=== PATIENT | male | born 1965 | race African-American/Black ===

== ENCOUNTER 2016-11-29 20:46 | Observation (INO) | payer SELFPAY ==
[~2016-11-29] VITALS: Ht 167.6 cm; Wt 100.0 kg
[~2016-11-29 20:46] MED LIST: Aspirin Chew PO; CARV6.25 PO; PLAV75TA29 PO; PRAV40TA PO
[2016-11-29 20:49] VITALS: BP 124/65; PULSE 82; RESP 16; TEMP 98.7; O2SAT 92
[2016-11-29 20:53] VITALS: O2SAT 94
--- NOTE | 2016-11-29 21:01 | PD ---
HPI Chief Complaint: Chest Pain Time Seen by Provider: 20:50 Travel History International Travel<30 days: No Contact w/Intl Traveler<30days: No Traveled to known affect area: No History of Present Illness HPI The patient is a 51 year old male who presents to the [facility] emergency department with a history of according to ambulance services being witnessed by bystanders to be walking on the sidewalk and then slowly collapsing to the ground. The patient is found in the prone position with a decreased level of consciousness. Upon awakening further without any medication administration the patient reported that he had chest pain. The patient reports that he had a stent placed 2 months ago. The patient is unsure what medications he is on normally. He denies taking any aspirin today. He was given one sublingual nitroglycerin by ambulance services prior to arrival. The patient reports that he was at a bar prior to this occurring and was given a drink. He is unsure what was in the drink. He denies using any drugs. He reports that he does smoke a half a pack of cigarettes per day. He drinks alcohol occasionally. He reports that he only had 1 drink this evening. The patient had no visible trauma, no injury to his tongue or evidence of tongue biting. No loss of bowel or bladder control. The patient reports that the chest pain is currently present. It is present on the left side of the chest. He reports that he feels like tiny needles are sticking him in the left side of the chest. He denies having any shortness of breath, diaphoresis, nausea or radiation of pain associated with this The patient denies any recent fevers, cough, congestion, neck pain, vomiting, diarrhea, urinary symptoms, or neurologic symptoms. [facility] Past Medical History Narrative Medical The patient's past medical history is significant for coronary artery disease status post stent placement 2 months ago. Autoimmune Disease: No Cancer: No Cardiovascular Problems: No Endocrine: No Genitourinary: No Immune Disorder: No Musculoskeletal: No Neurologic: No Psychiatric: No Reproductive: No Respiratory: No Past Surgical History Narrative Surgical The patient's past surgical history significant for cardiac catheterization with stent placement, left knee surgery. Social History Alcohol Use: Yes (occasionally) Tobacco Use: Yes (half a pack a day) Substance Use: No Allergies-Medications (Allergen,Severity, Reaction): Coded Allergies: Penicillin (Verified Allergy, Intermediate, rash, 09/28/16) Reported Meds & Prescriptions Reported Meds & Active Scripts Active Pravachol (Pravastatin) 40 Mg Tab 40 Mg PO HS 30 Days Plavix (Clopidogrel Bisulfate) 75 Mg Tab 75 Mg PO DAILY 30 Days Coreg (Carvedilol) 6.25 Mg Tab 6.25 Mg PO BID 30 Days [Aspirin Chew] 81 MG Chew 81 Mg PO DAILY 30 Days Review of Systems Except as stated in HPI: all other systems reviewed are Neg General / Constitutional: No: Fever Eyes: No: Visual changes HENT: No: Headaches Cardiovascular: Positive: Chest Pain or Discomfort, No: Dyspnea on exertion Respiratory: No: Shortness of Breath Gastrointestinal: No: Abdominal Pain Genitourinary: No: Dysuria Musculoskeletal: No: Pain Skin: No Rash Neurologic: Positive: Weakness (generalized weak), Tremor (tremulousness on arrival), Change in Mentation, No: Focal Abnormalities, Headache, Slurred Speech, Sensory Disturbance Psychiatric: No: Depression Endocrine: No: Polydipsia Hematologic/Lymphatic: No: Easy Bruising Physical Exam Narrative General: The patient is a well-developed well-nourished male in no acute distress. The patient is drowsy on examination slow to answer questions. Head and Neck exam: Head is normocephalic atraumatic. Eyes: EOMI, pupils are equal round and reactive to light. Nose: Midline septum with pink mucous membranes Mouth: Dentition unremarkable. Moist mucus membranes. Posterior oropharynx is not erythematous. No tonsillar hypertrophy. Uvula midline. Airway patent. No evidence of trauma to his tongue or in his mouth. Neck: No palpable lymphadenopathy. No nuchal rigidity. No thyromegaly. Cardiovascular: Regular rate and rhythm without murmurs, gallops, or rubs. Lungs: Clear to auscultation bilaterally. No wheezes, rhonchi, or rales. Abdomen: Soft, without tenderness to palpation in all 4 quadrants of the abdomen. No guarding, rebound, or rigidity. Normal bowel sounds are audible. Extremities: No clubbing, cyanosis, or edema. 2+ pulses in all 4 extremities. The patient has decreased range of motion of the left knee, however he reports this is chronic related to his prior history of knee surgery. Back: No spinous process tenderness to palpation. No costovertebral angle tenderness to palpation. Neurologic Exam: Cranial nerves 2-12 were intact on exam. Strength is 5/5 in all 4 extremities. No sensory deficits noted. The patient is oriented to person, place, however not time or situation. He cannot recall the events of what occurred just prior to arrival. Skin Exam: No rash noted. Intact skin that is warm and dry. Data Data Last Documented VS Vital Signs Date Time Temp Pulse Resp B/P Pulse Ox O2 Delivery O2 Flow Rate FiO2 11/29/16 22:57 79 16 145/85 95 Nasal Cannula 2 11/29/16 20:49 98.7 Orders Electrocardiogram (11/29/16 20:50) Complete Blood Count With Diff (11/29/16 20:50) Comprehensive Metabolic Panel (11/29/16 20:50) Creatine Kinase (Cpk) (11/29/16 20:50) Ckmb (Isoenzyme) Profile (11/29/16 20:50) Troponin I (11/29/16 20:50) B-Type Natriuretic Peptide (11/29/16 20:50) Prothrombin Time / Inr (Pt) (11/29/16 20:50) Act Partial Throm Time (Ptt) (11/29/16 20:50) Lipase (11/29/16 20:50) Urinalysis - C+S If Indicated (11/29/16 20:50) Magnesium (Mg) (11/29/16 20:50) Alcohol (Ethanol) (11/29/16 20:50) Drug Screen, Random Urine (11/29/16 20:50) Salicylates (Aspirin) (11/29/16 20:50) Tylenol (Acetaminophen) (11/29/16 20:50) Thyroid Stimulating Hormone (11/29/16 20:50) Chest, Single Ap (11/29/16 20:50) Ct Brain W/O Iv Contrast(Rout) (11/29/16 20:50) Iv Access Insert/Monitor (11/29/16 20:50) Ecg Monitoring (11/29/16 20:50) Oxygen Administration (11/29/16 20:50) Oximetry (11/29/16 20:50) D-Dimer (11/29/16 20:50) Sodium Chlorid 0.9% 500 Ml Inj (Ns 500 M (11/29/16 21:15) Nitroglycerin 2% Oint (Nitroglycerin 2% (11/29/16 21:15) Aspirin Chew (Aspirin Chew) (11/29/16 21:15) CKMB (11/29/16 20:57) CKMB% (11/29/16 20:57) Sodium Chlor 0.9% 1000 Ml Inj (Ns 1000 M (11/29/16 22:30) Admit Order (Ed Use Only) (11/29/16 23:04) Labs Laboratory Tests Test 11/29/16 11/29/16 11/29/16 20:57 22:30 22:45 White Blood Count 7.9 TH/MM3 Red Blood Count 4.63 MIL/MM3 Hemoglobin 14.2 GM/DL Hematocrit 41.8 % Mean Corpuscular Volume 90.1 FL Mean Corpuscular Hemoglobin 30.7 PG Mean Corpuscular Hemoglobin 34.0 % Concent Red Cell Distribution Width 14.1 % Platelet Count 152 TH/MM3 Mean Platelet Volume 11.5 FL Neutrophils (%) (Auto) 67.5 % Lymphocytes (%) (Auto) 24.8 % Monocytes (%) (Auto) 6.3 % Eosinophils (%) (Auto) 0.7 % Basophils (%) (Auto) 0.7 % Neutrophils # (Auto) 5.3 TH/MM3 Lymphocytes # (Auto) 2.0 TH/MM3 Monocytes # (Auto) 0.5 TH/MM3 Eosinophils # (Auto) 0.1 TH/MM3 Basophils # (Auto) 0.1 TH/MM3 CBC Comment DIFF FINAL Differential Comment Prothrombin Time 11.0 SEC Prothromb Time International 1.0 RATIO Ratio Activated Partial 27.8 SEC Thromboplast Time D-Dimer Quantitative (PE/DVT) 0.43 MG/L FEU Sodium Level 142 MEQ/L Potassium Level 3.5 MEQ/L Chloride Level 104 MEQ/L Carbon Dioxide Level 28.6 MEQ/L Anion Gap 9 MEQ/L Blood Urea Nitrogen 12 MG/DL Creatinine 1.29 MG/DL Estimat Glomerular Filtration 71 ML/MIN Rate Random Glucose 78 MG/DL Calcium Level 8.3 MG/DL Magnesium Level 1.9 MG/DL Total Bilirubin 0.6 MG/DL Aspartate Amino Transf 26 U/L (AST/SGOT) Alanine Aminotransferase 46 U/L (ALT/SGPT) Alkaline Phosphatase 83 U/L Total Creatine Kinase 301 U/L Creatine Kinase MB 1.6 NG/ML Troponin I LESS THAN 0.02 NG/ML B-Type Natriuretic Peptide 10 PG/ML Total Protein 7.7 GM/DL Albumin 3.6 GM/DL Lipase 89 U/L Thyroid Stimulating Hormone 1.740 uIU/ML 3rd Gen Salicylates Level 3.1 MG/DL Acetaminophen Level LESS THAN 2.0 MCG/ML Ethyl Alcohol Level LESS THAN 3 MG/DL Urine Opiates Screen NEG Urine Barbiturates Screen NEG Urine Amphetamines Screen NEG Urine Benzodiazepines Screen NEG Urine Cocaine Screen POS Urine Cannabinoids Screen NEG Urine Color YELLOW Urine Turbidity CLEAR Urine pH 6.5 Urine Specific Paulina 1.018 Urine Protein TRACE mg/dL Urine Glucose (UA) NEG mg/dL Urine Ketones TRACE mg/dL Urine Occult Blood NEG Urine Nitrite NEG Urine Bilirubin NEG Urine Urobilinogen LESS THAN 2.0 MG/DL Urine Leukocyte Esterase NEG Urine RBC 1 /hpf Urine WBC 1 /hpf Urine Squamous Epithelial <1 /hpf Cells Urine Mucus FEW /lpf Microscopic Urinalysis Comment CULT NOT INDICATED MDM Medical Decision Making Medical Screen Exam Complete: Yes Emergency Medical Condition: Yes Medical Record Reviewed: Yes Interpretation(s) Last Impressions Head CT 11/29/162049 Signed Impressions: Service Date/Time: Tuesday, November 29, 2016 21:05 - CONCLUSION: Normal examination. Mark Rasmussen MD Chest X-Ray 11/29/162049 Signed Impressions: Service Date/Time: Tuesday, November 29, 2016 20:56 - CONCLUSION: 1. Cardiomegaly with dependent basilar atelectasis. Mark Rasmussen MD Differential Diagnosis Syncopal event, versus seizure activity with postictal state, versus altered mentation from acute intoxication Narrative Course During the course of the patients emergency department visit, the patients history, examination, and differential diagnosis were reviewed with the patient. The patient had IV access obtained and blood work sent for analysis. The patient was placed on a satellite project site monitor with oximetry and blood pressure monitoring. An EKG was done on arrival. The patient's EKG shows a sinus rhythm heart rate is 78, nonspecific T-wave abnormalities, no acute ST segment elevation is noted. No acute ST segment depression. T waves are inverted in aVL The patient was provided aspirin 162 mg by mouth 1. Nitroglycerin 1 inch the chest wall, normal saline a 500 mL bolus 1. The patients laboratory studies were reviewed and remarkable for white count is 7.9, hemoglobin 14.2, platelets 152 with a normal differential, CMP is remarkable for GFR 71, calcium 8.3 CPK is 301, troponin I less than 0.02, TSH 1.74, lipase 89, PT PTT unremarkable, d-dimer is 0.43, decreasing the likelihood of pulmonary embolism in this patient with no other significant known risk factors. Acetaminophen less than 2, alcohol level less than 3 Radiology studies were reviewed and remarkable for a chest x-ray that shows cardiomegaly with dependent bibasilar atelectasis, CT scan of the brain shows no acute abnormality. The patients results were discussed with the patient, including the plan of care. I explained that further testing and/ or monitoring is indicated based on the patients history, examination, and/ or laboratory findings. Therefore, I recommended admission for additional evaluation. The patient expressed understanding and was agreeable with this plan. The patient was admitted to the hospital in stable condition and [facility] Physician Communication Physician Communication The patient's case was discussed with Dr. Harrison who did agree to admit the patient for further evaluation and treatment at this time. Diagnosis Primary Impression: Syncope Qualified Code: R55 - Syncope, unspecified syncope type Additional Impressions: Chest pain Qualified Code: R07.9 - Chest pain, unspecified type History of coronary artery disease Admitting Information Admitting Physician Requests: Mel Burton MD Nov 29, 2016 21:00
[2016-11-29] MEDS ORDERED: ASPIRIN 81 MG CHEW TAB CHEW ONE (21:15)
[2016-11-29] MEDS ORDERED: SODIUM CHLORID 0.9% 500 ML INJ 500 ML IV ONE (21:15)
[2016-11-29] MEDS ORDERED: NITROGLYCERIN 2% OINT 1 GM PACKET TOPICAL ONE (21:15)
[2016-11-29 21:18] VITALS: BP 143/78; PULSE 76; RESP 16; O2SAT 95
--- NOTE | 2016-11-29 21:19 | RADRPT ---
EXAM DATE/TIME: 11/29/2016 21:05 [facility] COMPARISON: No previous studies available for comparison. INDICATIONS : Dizzy and lethargic with altered mental status. RADIATION DOSE: 56.35 CTDIvol (mGy) MEDICAL HISTORY : Cardiovascular disease. SURGICAL HISTORY : None. ENCOUNTER: Initial ACUITY: 1 day PAIN SCALE: 5/10 LOCATION: cranial TECHNIQUE: Multiple contiguous axial images were obtained of the head. Using automated exposure control and adj ustment of the mA and/or kV according to patient size, radiation dose was kept as low as reasonably a chievable to obtain optimal diagnostic quality images. FINDINGS: CEREBRUM: The ventricles are normal for age. No evidence of midline shift, mass lesion, hemorrhage or acute in farction. No extra-axial fluid collections are seen. POSTERIOR FOSSA: The cerebellum and brainstem are intact. The 4th ventricle is midline. The cerebellopontine angle i s unremarkable. EXTRACRANIAL: The visualized portion of the orbits is intact. SKULL: The calvaria is intact. No evidence of skull fracture. CONCLUSION: Normal examination. Mark Rasmussen MD on November 29, 2016 at 21:16 Board Certified Radiologist. This report was verified electronically.
--- NOTE | 2016-11-29 21:24 | RADRPT ---
EXAM DATE/TIME: 11/29/2016 20:56 [facility] COMPARISON: No previous studies available for comparison. INDICATIONS : Chest pain. MEDICAL HISTORY : None. SURGICAL HISTORY : None. ENCOUNTER: Initial ACUITY: 1 day PAIN SCORE: Non-responsive. LOCATION: Bilateral chest FINDINGS: A single view of the chest demonstrates cardiomegaly. Minimal subsegmental basilar airspace disease. No effusion. No pneumothorax. CONCLUSION: 1. Cardiomegaly with dependent basilar atelectasis. Mark Rasmussen MD on November 29, 2016 at 21:22 Board Certified Radiologist. This report was verified electronically.
[2016-11-29 21:27] LABS: AUTOMATED NEUTROPHIL # 5.3 TH/MM3 (1.8-7.7); BASOPHIL # 0.1 TH/MM3 (0-0.2); BASOPHIL % 0.7 % (0.0-2.0); EOSINOPHIL # 0.1 TH/MM3 (0-0.4); EOSINOPHIL % 0.7 % (0.0-4.0); HEMATOCRIT 41.8 % (39.0-51.0); HEMO FLAGS DIFF FINAL; LYMPH % 24.8 % (9.0-44.0); MEAN CELL VOLUME 90.1 FL (80.0-100.0); MEAN CORPUSCULAR HEMOGLOBIN 30.7 PG (27.0-34.0); MONO % 6.3 % (0.0-8.0); NEUT % 67.5 % (16.0-70.0); PLATELET COUNT 152 TH/MM3 (150-450); RED BLOOD COUNT 4.63 MIL/MM3 (4.50-5.90); RED CELL DISTRIBUTION WIDTH 14.1 % (11.6-17.2); WHITE BLOOD COUNT 7.9 TH/MM3 (4.0-11.0)
[2016-11-29 21:49] LABS: APTT (PATIENT) 27.8 SEC (24.3-30.1)
[2016-11-29 21:50] LABS: ALKALINE PHOSPHATASE 83 U/L (45-117); ALT (GPT) 46 U/L (12-78); ANION GAP 9 MEQ/L (5-15); AST (GOT) 26 U/L (15-37); BICARBONATE 28.6 MEQ/L (21.0-32.0); BLOOD UREA NITROGEN 12 MG/DL (7-18); CHLORIDE 104 MEQ/L (98-107); CREATINE KINASE 301 U/L (39-308); GLOMERULAR FILTRATION RATE 71 ML/MIN (>89); MAGNESIUM 1.9 MG/DL (1.5-2.5); POTASSIUM 3.5 MEQ/L (3.5-5.1); SODIUM (NA) 142 MEQ/L (136-145); TOTAL BILIRUBIN ADULT 0.6 MG/DL (0.2-1.0)
[2016-11-29 21:51] LABS: ACETAMINOPHEN LESS THAN 2.0 MCG/ML (10.0-30.0)
[2016-11-29 22:04] LABS: CKMB 1.6 NG/ML (0.5-3.6)
[2016-11-29] MEDS ORDERED: SODIUM CHLOR 0.9% 1000 ML INJ 1,000 ML IV ONE (22:30)
[2016-11-29 22:57] VITALS: BP 145/85; PULSE 79; RESP 16; O2SAT 95
[2016-11-29 23:06] LABS: AMPHETAMINE, URINE NEG (NEG); BARBITURATES, URINE NEG (NEG); COCAINE, URINE POS (NEG)
[2016-11-29 23:23] LABS: BLOOD, URINE NEG (NEG); COMMENT (UR) CULT NOT INDICATED; CULTURE IF INDICATED CULT NOT INDICATED; GLUCOSE,URINE NEG (NEG); KETONE, URINE TRACE mg/dL (NEG); MUCUS URINE FEW /lpf (OCC); NITRITE,URINE NEG (NEG); PH, URINE 6.5 (5.0-8.5); SQUAMOUS EPITHELIAL CELL URINE <1 /hpf (0-5); URINE COLOR YELLOW (YELLW/STRAW)
[2016-11-29] MEDS ORDERED: SODIUM CHLORIDE 0.9% FLUSH 5 ML FLUSH FLUSH PRN (23:45)
[2016-11-29] MEDS ORDERED: NALOXONE HCL 0.4 MG/ML AMP IV PRN (23:45)
[2016-11-30] VITALS (10 sets, daily range): BP systolic 118–162; BP diastolic 57–78; PULSE 73–81; RESP 16–21; TEMP 96–98; O2SAT 95–99
[2016-11-30 03:32] LABS: AUTOMATED NEUTROPHIL # 3.7 TH/MM3 (1.8-7.7); BASOPHIL # 0.1 TH/MM3 (0-0.2); BASOPHIL % 0.9 % (0.0-2.0); EOSINOPHIL # 0.1 TH/MM3 (0-0.4); EOSINOPHIL % 2.1 % (0.0-4.0); HEMATOCRIT 39.2 % (39.0-51.0); HEMO FLAGS DIFF FINAL; LYMPH % 33.2 % (9.0-44.0); LYMPHOCYTE # 2.1 TH/MM3 (1.0-4.8); MEAN CELL VOLUME 90.4 FL (80.0-100.0); MEAN CORPUSCULAR HEMOGLOBIN 30.4 PG (27.0-34.0); MEAN CORPUSCULAR HGB CONC 33.7 % (32.0-36.0); MONO % 5.4 % (0.0-8.0); NEUT % 58.4 % (16.0-70.0); PLATELET COUNT 130 TH/MM3 (150-450); RED BLOOD COUNT 4.34 MIL/MM3 (4.50-5.90); RED CELL DISTRIBUTION WIDTH 14.1 % (11.6-17.2); WHITE BLOOD COUNT 6.3 TH/MM3 (4.0-11.0)
[2016-11-30 03:51] LABS: ANION GAP 6 MEQ/L (5-15); BICARBONATE 29.2 MEQ/L (21.0-32.0); BLOOD UREA NITROGEN 12 MG/DL (7-18); CHLORIDE 108 MEQ/L (98-107); GLOMERULAR FILTRATION RATE 82 ML/MIN (>89); POTASSIUM 3.3 MEQ/L (3.5-5.1); SODIUM (NA) 143 MEQ/L (136-145)
[2016-11-30 03:55] LABS: CREATINE KINASE 260 U/L (39-308)
[2016-11-30] MEDS ORDERED: POTASSIUM CHLORIDE 10 MEQ CONTROLLED RELEASE TAB PO ONE (09:00)
[2016-11-30 09:27] LABS: CREATINE KINASE 244 U/L (39-308)
--- NOTE | 2016-11-30 10:03 | RADRPT ---
EXAM DATE/TIME: 11/30/2016 08:44 [facility] COMPARISON: US CAROTID ARTERIES, July 21, 2012, 9:23. INDICATIONS : Syncope. MEDICAL HISTORY : Myocardial infarction. Hypercholesterolemia. Syncope. Coronary artery disease. SURGICAL HISTORY : Left knee reconstruction. Cardiac stent placement. ENCOUNTER: Initial ACUITY: 1 day PAIN SCORE: 7/10 LOCATION: Bilateral neck PEAK SYSTOLIC VELOCITIES (cm/sec): ICA/CCA RATIO: Right: 0.8 Left: 0.7 ICA: Right: 72 Left: 75 CCA: Right: 94 Left: 100 ECA: Right: 118 Left: 96 VERTEBRAL: Right: 48 antegrade Left: 38 antegrade Elevated flow velocities and ICA/CCA ratios have been found to correlate with increased degrees of vessel stenosis, calculated as percentage of diameter relative to a normal segment of distal ICA/CCA FINDINGS: RIGHT CAROTID: No significant stenosis is visualized.. The waveforms are within normal limits. LEFT CAROTID: No significant stenosis is visualized. Mild plaque is present in the distal left common carotid arter y. The waveforms are within normal limits. VERTEBRAL ARTERIES: Antegrade flow is seen in both vertebral arteries. MISCELLANEOUS: None. CONCLUSION: 1. Mild plaque in the distal left common carotid artery. 2. No evidence of stenosis. Mynor Vernon MD on November 30, 2016 at 10:01 Board Certified Radiologist. This report was verified electronically.
[2016-11-30] MEDS: SODIUM CHLORIDE 0.9% FLUSH 5 ML FLUSH FLUSH SCH ×2 (10:43→20:17)
[2016-11-30] MEDS: MORPHINE SULFATE 4 MG/ML INJ IV PRN ×3 (10:43→20:18)
[2016-11-30] MEDS: NITROGLYCERIN 2% OINT 1 GM PACKET TOP SCH ×3 (12:12→22:51)
[2016-11-30] MEDS ORDERED: ASPI1TAB91 PO (14:34)
--- NOTE | 2016-11-30 14:52 | HHI.HP ---
HPI Service [facility] Primary Care Physician No Primary Care Physician Admission Diagnosis syncope, cp ro mi, h/o CAD Diagnoses: Chief Complaint: syncope, chest pain Travel History International Travel<30 Days: No Contact w/Intl Traveler <30 Da: No Traveled to Known Affected Are: No History of Present Illness 51-year-old male with history of CAD with stent x2 in , presents with chest pains and syncope. The patient states he was walking on [employer] when he remembers having severe chest pain then the next thing he recalls is arriving to the hospital. Witnessed by bystanders, the patient was seen walking down the street then slowly collapsed to the ground, he had decreased level of consciousness. No reported seizure activity, bladder/bowel incontinence or tongue biting. He locates the chest pain to the left anterior chest without radiation, described as intermittent sharp stabbing "needle" 8/10 pains, worse with walking/exertion, relieved by rest, associated with diaphoresis, shortness of breath, nausea, but no vomiting. He states the chest pains will awake him from sleep at times. He had stents placed x2 in by Dr. Jarvis. He has been having the ongoing pains prior to the stent placement. He also complains of pain at right groin at the site of the catheterization. He reports compliance with medications including aspirin, plavix, statin, and coreg. He has not followed up with a doctor since discharge in September. He has no other medical complaints at this time. Of note, UDS positive for cocaine, the patient denies ever using cocaine, states he did have a few drinks prior to this but he doesn't know what was in the drink. Review of Systems Constitutional: COMPLAINS OF: Diaphoretic episodes, DENIES: Fever, Weight loss , Chills Endocrine: DENIES: Polydipsia, Polyuria, Polyphagia Eyes: DENIES: Blurred vision, Vision loss, Double Vision Ears, nose, mouth, throat: DENIES: Throat pain, Ear Pain, Running Nose, Odynophagia Respiratory: COMPLAINS OF: Shortness of breath, DENIES: Cough, Wheezing, Sputum production Cardiovascular: COMPLAINS OF: Chest pain, Syncope, DENIES: Palpitations, Lower Extremity Edema, Orthopnea Gastrointestinal: COMPLAINS OF: Nausea, DENIES: Abdominal pain, Constipation, Diarrhea, Vomiting Genitourinary: DENIES: Urinary frequency, Urgency, Dysuria Musculoskeletal: DENIES: Back pain, Neck pain Integumentary: DENIES: Pruritus, Rash Hematologic/lymphatic: DENIES: Bruising, Lymphadenopathy Immunologic/allergic: DENIES: Eczema, Urticaria Neurologic: DENIES: Abnormal gait, Headache, Localized weakness, Paresthesias Psychiatric: DENIES: Anxiety, Depression Past Family Social History Past Medical History CAD with stent x2 Past Surgical History Left knee surgery Cardiac catheterization Reported Medications aspirin, plavix, coreg, statin Allergies: Coded Allergies: Penicillin (Verified Allergy, Intermediate, rash, 09/28/16) Active Ordered Medications Current Medications Medications (Trade) Dose Ordered Sig/Willie Route Start Time Stop Time Status Last Admin (NS Flush) 2 ml UNSCH PRN FLUSH 11/29/16 23:45 (NS Flush) 2 ml BID FLUSH 11/30/16 09:00 11/30/16 10:43 (Narcan Inj) 0.4 mg UNSCH PRN IV 11/29/16 23:45 (Nitroglycerin 2% Oint) 1 inch Q6HR TOP 11/30/16 12:00 11/30/16 12:12 (Morphine Inj) 2 mg Q2H PRN IV 11/30/16 10:30 11/30/16 10:43 Family History Mother with diabetes and multiple heart problems, started in her late 40s Father with liver disease 2 sisters with diabetes 1 brother with cancer, unknown type Social History Smokes tobacco, 1/2 PPD Occasional alcohol use Denies illicit drug use, although UDS +cocaine Physical Exam Vital Signs Vital Signs Date Time Temp Pulse Resp B/P Pulse Ox O2 Delivery O2 Flow Rate FiO2 11/30/16 14:26 97.8 76 19 118/64 96 11/30/16 12:37 97.3 80 20 127/66 97 162/69 152/72 11/30/16 10:48 18 11/30/16 08:00 75 11/30/16 07:14 96.0 81 19 125/71 96 11/30/16 06:17 73 18 118/57 97 11/30/16 02:35 78 11/30/16 01:00 78 16 127/78 95 Nasal Cannula 2 11/30/16 00:00 73 16 129/68 96 Nasal Cannula 2 11/29/16 22:57 79 16 145/85 95 Nasal Cannula 2 11/29/16 21:18 76 16 143/78 95 Nasal Cannula 2 11/29/16 20:53 94 Nasal Cannula 2 11/29/16 20:53 88 16 91 Room Air 11/29/16 20:53 94 Nasal Cannula 2 11/29/16 20:49 98.7 82 16 124/65 92 Physical Exam GENERAL: Well-nourished, well-developed middle aged AA male patient in [facility]. SKIN: Warm and dry. No rash. HEAD: Normocephalic. Atraumatic. EYES: Pupils equal and round. No scleral icterus. No injection or drainage. ENT: No nasal bleeding or discharge. Mucous membranes pink and moist. NECK: Supple. Trachea midline. CARDIOVASCULAR: Regular rate and rhythm. S1, S2 noted. No murmur appreciated. RESPIRATORY: No accessory muscle use. Clear to auscultation. Breath sounds equal bilaterally. GASTROINTESTINAL: Abdomen soft, non-tender, nondistended. Normoactive bowel sounds x4. MUSCULOSKELETAL: No obvious deformities. Extremities without clubbing, cyanosis , or edema. NEUROLOGICAL: Awake and alert. No obvious cranial nerve deficits. Motor grossly within normal limits. 5/5 muscle strength in bilateral upper and lower extremities. Normal speech. PSYCHIATRIC: Appropriate mood and affect; insight and judgment normal. Laboratory Laboratory Tests Test 11/29/16 11/29/16 11/29/16 11/30/16 20:57 22:30 22:45 03:14 White Blood Count 7.9 6.3 Red Blood Count 4.63 4.34 Hemoglobin 14.2 13.2 Hematocrit 41.8 39.2 Mean Corpuscular Volume 90.1 90.4 Mean Corpuscular Hemoglobin 30.7 30.4 Mean Corpuscular Hemoglobin 34.0 33.7 Concent Red Cell Distribution Width 14.1 14.1 Platelet Count 152 130 Mean Platelet Volume 11.5 10.4 Neutrophils (%) (Auto) 67.5 58.4 Lymphocytes (%) (Auto) 24.8 33.2 Monocytes (%) (Auto) 6.3 5.4 Eosinophils (%) (Auto) 0.7 2.1 Basophils (%) (Auto) 0.7 0.9 Neutrophils # (Auto) 5.3 3.7 Lymphocytes # (Auto) 2.0 2.1 Monocytes # (Auto) 0.5 0.3 Eosinophils # (Auto) 0.1 0.1 Basophils # (Auto) 0.1 0.1 CBC Comment DIFF FINAL DIFF FINAL Differential Comment Prothrombin Time 11.0 Prothromb Time International 1.0 Ratio Activated Partial 27.8 Thromboplast Time D-Dimer Quantitative (PE/DVT) 0.43 Sodium Level 142 143 Potassium Level 3.5 3.3 Chloride Level 104 108 Carbon Dioxide Level 28.6 29.2 Anion Gap 9 6 Blood Urea Nitrogen 12 12 Creatinine 1.29 1.15 Estimat Glomerular Filtration 71 82 Rate Random Glucose 78 127 Calcium Level 8.3 8.0 Magnesium Level 1.9 Total Bilirubin 0.6 Aspartate Amino Transf 26 (AST/SGOT) Alanine Aminotransferase 46 (ALT/SGPT) Alkaline Phosphatase 83 Total Creatine Kinase 301 260 Creatine Kinase MB 1.6 Troponin I LESS THAN 0.02 LESS THAN 0.02 B-Type Natriuretic Peptide 10 Total Protein 7.7 Albumin 3.6 Lipase 89 Thyroid Stimulating Hormone 1.740 3rd Gen Salicylates Level 3.1 Acetaminophen Level LESS THAN 2.0 Ethyl Alcohol Level LESS THAN 3 Urine Opiates Screen NEG Urine Barbiturates Screen NEG Urine Amphetamines Screen NEG Urine Benzodiazepines Screen NEG Urine Cocaine Screen POS Urine Cannabinoids Screen NEG Urine Color YELLOW Urine Turbidity CLEAR Urine pH 6.5 Urine Specific Letha 1.018 Urine Protein TRACE Urine Glucose (UA) NEG Urine Ketones TRACE Urine Occult Blood NEG Urine Nitrite NEG Urine Bilirubin NEG Urine Urobilinogen LESS THAN 2.0 Urine Leukocyte Esterase NEG Urine RBC 1 Urine WBC 1 Urine Squamous Epithelial <1 Cells Urine Mucus FEW Microscopic Urinalysis Comment CULT NOT INDICATED Test 11/30/16 08:44 Total Creatine Kinase 244 Troponin I LESS THAN 0.02 Result Diagram: 11/30/1631311/30/16313 Imaging Current Medications Medications (Trade) Dose Ordered Sig/Willie Route Start Time Stop Time Status Last Admin (NS Flush) 2 ml UNSCH PRN FLUSH 11/29/16 23:45 (NS Flush) 2 ml BID FLUSH 11/30/16 09:00 11/30/16 10:43 (Narcan Inj) 0.4 mg UNSCH PRN IV 2/6/17 23:45 (Nitroglycerin 2% Oint) 1 inch Q6HR TOP 11/30/16 12:00 11/30/16 17:33 (Morphine Inj) 2 mg Q2H PRN IV 11/30/16 10:30 11/30/16 15:36 Assessment and Plan Problem List: (1) Chest pain ICD Code: R07.9 Status: Acute (2) History of coronary artery disease ICD Code: Z86.79 Status: Acute (3) Syncope ICD Code: R55 Status: Acute Assessment and Plan 51-year-old male with history of CAD with stent x2 in , presents with chest pains and syncope Chest Pain with hx of CAD s/p Stent: ACS ruled out with negative cardiac enzymes 3, and EKG without acute ST changes. D-dimer negative, doubt PE. Continue patient's aspirin, Plavix, statin, Coreg. Give Nitro ointment q6h. IV Morphine prn pain. Consult cardiology, initially placed consult to Dr. Jarvis who placed stents 2 months ago however he has requested on-call cardiology consult. Check echocardiogram Syncope: unclear etiology, possibly related to alcohol/cocaine use, however need to evaluate other possible etiologies. ACS ruled out as above. Monitor on telemetry. Carotid U/S with mild plaque of distal left common carotid, otherwise no stenosis. Orthostatics negative. Given IVF bolus. Check echocardiogram. Cardiology consult as above. Hypokalemia: K 3.3, replaced with po KCl, recheck labs tomorrow. DVT Prophylaxis: SCDs Written by Donna Charles, acting as scribe for Dr. Matamoros on 11/30/16 at 14:51. The documentation accurately reflects the work performed [id number] by ma Dr. Matamoros on 11/30/16 at 14:51. Code Status Full Code Discussed Condition With Patient, Patient's Aunt at bedside, RN Problem Qualifiers (1) Chest pain: Qualified Code: R07.9 - Chest pain, unspecified type (2) Syncope: Qualified Code: R55 - Syncope, unspecified syncope type Donna Charles PA-C Nov 30, 2016 14:52 Angela Matamoros MD Nov 30, 2016 18:11
[2016-11-30] MEDS ORDERED: ACETAMINOPHEN/HYDROcodone 325 MG/5 MG TAB PO PRN (17:45)
--- NOTE | 2016-11-30 17:49 | EKG ---
Date Performed: 11/30/2016 Time Performed: 09:37:11 PTAGE: 51 years EKG: Sinus rhythm NONSPECIFIC T-WAVE ABNORMALITY Since previous tracing, no significant change noted ABNORMAL ECG PREVIOUS TRACING : 11/30/2016 03.10 DOCTOR: Lance Bowers Interpretating Date/Time 11/30/2016 17:49:25
--- NOTE | 2016-11-30 17:49 | EKG ---
Date Performed: 11/30/2016 Time Performed: 03:10:16 PTAGE: 51 years EKG: Sinus rhythm NONSPECIFIC T-WAVE ABNORMALITY Since previous tracing, no significant change noted ABNORMAL ECG PREVIOUS TRACING : 11/29/2016 20.55 DOCTOR: Lance Bowers Interpretating Date/Time 11/30/2016 17:49:01
--- NOTE | 2016-11-30 17:49 | EKG ---
Date Performed: 11/29/2016 Time Performed: 20:55:20 PTAGE: 51 years EKG: Sinus rhythm NONSPECIFIC T-WAVE ABNORMALITY Since previous tracing, no significant change noted BORDERLINE ECG PREVIOUS TRACING : 09/29/2016 06.52.32 DOCTOR: Lance Bowers Interpretating Date/Time 11/30/2016 17:48:49
--- NOTE | 2016-11-30 17:50 | EC ---
Study Study Date:11/30/2016 STUDY CONCLUSIONS SUMMARY LEFT VENTRICLE: The cavity size was normal. Wall thickness was increased in a pattern of mild LVH. There was concentric hypertrophy. Systolic function was normal. The estimated ejection fraction was in the range of 60% to 65%. Wall motion was normal; there were no regional wall motion abnormalities. If LV function is below 40, please consider prescribing an ACEI or ARB or document rationale for non-use. PROCEDURE DATA STUDY STATUS: Elective. Procedure: Transthoracic echocardiography. Image quality was good. Scanning was performed from the parasternal, apical, and subcostal acoustic windows. Study completion: The patient tolerated the procedure well. Transthoracic echocardiography. M-mode, complete 2D, complete spectral Doppler, and color Doppler. Height: Height: 66in. Weight: Weight: 219.5lb. Body mass index: BMI: 35.5kg/m^2. Body surface area: BSA: 2.08m^2. Patient status: Inpatient. CARDIAC ANATOMY LEFT VENTRICLE: The cavity size was normal. Wall thickness was increased in a pattern of mild LVH. There was concentric hypertrophy. Systolic function was normal. The estimated ejection fraction was in the range of 60% to 65%. Wall motion was normal; there were no regional wall motion abnormalities. AORTIC VALVE: The valve appears to be grossly normal. Doppler: There was no stenosis. No significant regurgitation. Valve area: 2.38cm^2 (Vmax). Indexed valve area: 1.14cm^2/m^2 (Vmax). MITRAL VALVE: The valve appears to be grossly normal. Doppler: There was no evidence for stenosis. Trace regurgitation. Peak gradient: 2mm Hg (D). LEFT ATRIUM: The atrium was normal in size. PULMONIC VALVE: The valve appears to be grossly normal. Doppler: There was no evidence for stenosis. Trace regurgitation. TRICUSPID VALVE: The valve appears to be grossly normal. Doppler: Transvalvular velocity was within the normal range. There was no evidence for stenosis. Trace regurgitation. PERICARDIUM: There was no pericardial effusion. Patient weight: 219.5lb _Ejection fraction:_ 65-75% _Fractional shortening:_ 32% up to 5Kg 5-11.5Kg 11.6-22.9Kg 23-45Kg 45-57Kg Aortic Root 7-13 <17 13-22 17-27 17-27 LA diam 6-13 <23 24-38 33-47 37-40 RVID 10-17 7-15 7-15 7-18 8-17 LVIDd 12-22 <32 24-38 33-47 37-40 LVPW 2-4 3-6 5-7 6-8 7-8 IVS 2-4 3-6 5-7 6-8 7-8 BASIC MEASUREMENTS ADULT NORMAL Left ventricle LV internal dimension, ED, chordal *52.5 mm 43-52 level, PLAX LV internal dimension, ES, chordal 38 mm 23-38 level, PLAX Fractional shortening, chordal level, *28 % >29 PLAX LV posterior wall thickness, ED 8.86 mm IVS/LVPW ratio, ED 0.71 <1.3 Ventricular septum Septal thickness, ED 6.27 mm Aortic valve Leaflet separation 22 mm 15-26 BASIC MEASUREMENTS ADULT NORMAL Aortic valve Leaflet separation 22 mm 15-26 Aorta Root diameter, ED 31 mm 20-37 Left atrium Anterior-posterior dimension, ES 32 mm 19-40 Anterior-posterior dimension index, ES 1.54 cm/m^2 <2.2 LA/aortic root ratio 1.03 DOPPLER MEASUREMENTS ADULT NORMAL Main pulmonary artery Pressure, S 18 mm Hg =30 Aortic valve Peak velocity, S 121 cm/s Valve area, Vmax 2.38 cm^2 Valve area index, Vmax 1.14 cm^2/m^2 Mitral valve Peak E-wave velocity 77 cm/s Peak A-wave velocity 65.2 cm/s Deceleration time 165 ms 150-230 Peak gradient, D 2 mm Hg Peak E/A ratio 1.2 Tricuspid valve Regurgitant peak velocity 182 cm/s Peak RV-RA gradient, S 13 mm Hg Maximal regurgitant velocity 182 cm/s Systemic veins Estimated CVP 10 mm Hg Right ventricle RV pressure, S 23 mm Hg <30 Pulmonic valve Peak velocity, S 109 cm/s LEGEND: Mean values are shown as u=mean value. Asterisk (*) hilliard values outside specified normal range. Prepared and signed by Bryan Bone [id number]
[2016-11-30] MEDS ORDERED: CARVEDILOL 6.25 MG TAB PO SCH (21:00)
[2016-11-30] MEDS ORDERED: PRAVASTATIN SOD 40 MG TAB PO SCH (21:00)
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
[2016-12-01 04:48] VITALS: BP 116/68; PULSE 63; RESP 21; TEMP 98.4; O2SAT 98
[2016-12-01] MEDS: MORPHINE SULFATE 4 MG/ML INJ IV PRN (04:57)
[2016-12-01] MEDS: NITROGLYCERIN 2% OINT 1 GM PACKET TOP SCH ×2 (05:08→12:00)
[2016-12-01 08:00] VITALS: PULSE 77
[2016-12-01] MEDS: SODIUM CHLORIDE 0.9% FLUSH 5 ML FLUSH FLUSH SCH (08:20)
[2016-12-01 08:28] VITALS: BP 126/77; PULSE 68; RESP 20; TEMP 98.1; O2SAT 98
--- NOTE | 2016-12-01 08:51 | PD.CARD.PN ---
Subjective Subjective Remarks Still with pain in his chest wall, made sure to go back over the pain with him, it's sharp, at a certain point in the second intercostal space (about the size of a finger pad) that is reproducible with palpation of the chest wall. It's the same pain as before his cardiac catheterization and intervention, and has not changed. Objective Medications Current Medications Medications (Trade) Dose Ordered Sig/Willie Route Start Time Stop Time Status Last Admin (NS Flush) 2 ml UNSCH PRN FLUSH 11/29/16 23:45 (NS Flush) 2 ml BID FLUSH 11/30/16 09:00 12/01/16 08:20 (Narcan Inj) 0.4 mg UNSCH PRN IV 11/29/16 23:45 (Nitroglycerin 2% Oint) 1 inch Q6HR TOP 11/30/16 12:00 12/01/16 05:08 (Morphine Inj) 2 mg Q2H PRN IV 11/30/16 10:30 12/01/16 04:57 (Ecotrin Ec) 81 mg DAILY PO 12/01/16 09:00 12/01/16 08:20 (Plavix) 75 mg DAILY PO 12/01/16 09:00 12/01/16 08:20 (Pravachol) 40 mg HS PO 11/30/16 21:00 11/30/16 20:17 ([place] 5-325 Mg) 1 tab Q6H PRN PO 11/30/16 17:45 Vital Signs / I&O Vital Signs Date Time Temp Pulse Resp B/P Pulse Ox O2 Delivery O2 Flow Rate FiO2 12/01/16 08:28 98.1 68 20 126/77 98 12/01/16 05:08 16 12/01/16 04:48 98.4 63 21 116/68 98 11/30/16 22:24 79 11/30/16 21:12 98.0 80 21 127/70 99 11/30/16 14:26 97.8 76 19 118/64 96 11/30/16 12:37 97.3 80 20 127/66 97 162/69 152/72 I/O 11/30/16 11/30/16 11/30/16 12/01/16 12/01/16 12/01/16 07:00 15:00 23:00 07:00 15:00 23:00 Output Total 600 ml 700 ml Balance -600 ml -700 ml Output Urine Total 600 ml 700 ml # Voids 3 # Bowel Movements 0 Physical Exam GENERAL: NAD, AAOx3 SKIN: Warm and dry. HEAD: Atraumatic. Normocephalic. EYES: Pupils equal and round. No scleral icterus. No injection or drainage. ENT: No nasal bleeding or discharge. Mucous membranes pink and moist. NECK: Trachea midline. No JVD. CHEST INSPECTION: Pain reproduced with palpation of the anterior chest wall in the second intercostal space CARDIOVASCULAR: Regular rate and rhythm. RESPIRATORY: No accessory muscle use. Clear to auscultation. Breath sounds equal bilaterally. GASTROINTESTINAL: Abdomen soft, non-tender, nondistended. Hepatic and splenic margins not palpable. MUSCULOSKELETAL: Extremities without clubbing, cyanosis, or edema. No obvious deformities. NEUROLOGICAL: Awake and alert. No obvious cranial nerve deficits. Motor grossly within normal limits. Five out of 5 muscle strength in the arms and legs. Normal speech. PSYCHIATRIC: Appropriate mood and affect; insight and judgment normal. Laboratory Laboratory Tests Test 11/30/16 08:44 Total Creatine Kinase 244 U/L Troponin I LESS THAN 0.02 NG/ML Assessment and Plan Problem List: (1) History of coronary artery disease (2) Chest pain (3) Syncope (4) History of cocaine use Assessment and Plan 1) Chest pain non-cardiac in nature, reproducible with palpation, troponins showing no myocardial necrosis 2) CAD, recent stenting, continue ASA/Plavix 3) History of cocaine use, stopped Coreg 4) He admits to more cocaine use than before. Previously it was 1-2 times, now this morning he admits to using a larger amount in the past. I explained that he needs to stop his use all together, as it may cause arrhythmias which lead to his syncopal episode, as well as other consequences. 5) Syncope may have been caused by an arrhythmia, telemetry shows normal sinus rhythm through the night, would have him follow up for event monitor/loop recorder 6) Echo EF 60-65%, no wall motion abnormalities, no valvulopathies 7) Cardiovascularly stable for discharge today, no further inpatient work up Problem Qualifiers (1) Chest pain: Qualified Code: R07.9 - Chest pain, unspecified type (2) Syncope: Qualified Code: R55 - Syncope, unspecified syncope type Bryan Bone DO Dec 01, 2016 08:51
[2016-12-01] MEDS ORDERED: ASPIRIN EC 81 MG TABEC PO SCH (09:00)
[2016-12-01] MEDS ORDERED: CLOPIDOGREL 75 MG TAB PO SCH (09:00)
--- NOTE | 2016-12-01 10:45 | HHI.PR ---
Subjective Remarks Follow up for chest pain, syncope. The patient reports no further chest pain today. Denies any shortness of breath, lightheadedness, dizziness. Denies any other medical complaints. Discussed with cardiology, cleared for discharge. Objective Vitals Vital Signs Date Time Temp Pulse Resp B/P Pulse Ox O2 Delivery O2 Flow Rate FiO2 12/01/16 08:28 98.1 68 20 126/77 98 12/01/16 05:08 16 12/01/16 04:48 98.4 63 21 116/68 98 11/30/16 22:24 79 11/30/16 21:12 98.0 80 21 127/70 99 11/30/16 14:26 97.8 76 19 118/64 96 11/30/16 12:37 97.3 80 20 127/66 97 162/69 152/72 I/O 11/30/16 11/30/16 11/30/16 12/01/16 12/01/16 12/01/16 07:00 15:00 23:00 07:00 15:00 23:00 Output Total 600 ml 700 ml Balance -600 ml -700 ml Output Urine Total 600 ml 700 ml # Voids 3 # Bowel Movements 0 Result Diagram: 11/30/16 0314 11/30/16 0314 Imaging Last Impressions Carotid Artery Ultrasound 11/30/16 0000 Signed Impressions: Service Date/Time: Wednesday, November 30, 2016 08:44 - CONCLUSION: 1. Mild plaque in the distal left common carotid artery. 2. No evidence of stenosis. Mynor Vernon MD Head CT 11/29/162049 Signed Impressions: Service Date/Time: Tuesday, November 29, 2016 21:05 - CONCLUSION: Normal examination. Mark Rasmussen MD Chest X-Ray 11/29/162049 Signed Impressions: Service Date/Time: Tuesday, November 29, 2016 20:56 - CONCLUSION: 1. Cardiomegaly with dependent basilar atelectasis. Mark Rasmussen MD Objective Remarks GENERAL: Well-nourished, well-developed middle aged AA male patient in NAD. SKIN: Warm and dry. No rash. HEAD: Normocephalic. Atraumatic. NECK: Supple. Trachea midline. CARDIOVASCULAR: Regular rate and rhythm. S1, S2 noted. No murmur appreciated. Mild left anterior chest TTP. RESPIRATORY: No accessory muscle use. Clear to auscultation. Breath sounds equal bilaterally. GASTROINTESTINAL: Abdomen soft, non-tender, nondistended. Normoactive bowel sounds x4. MUSCULOSKELETAL: No obvious deformities. Extremities without clubbing, cyanosis , or edema. NEUROLOGICAL: Awake and alert. No obvious cranial nerve deficits. Motor grossly within normal limits. Normal speech. PSYCHIATRIC: Appropriate mood and affect; insight and judgment normal. A/P Problem List: (1) Chest pain ICD Code: R07.9 Status: Acute (2) History of coronary artery disease ICD Code: Z86.79 Status: Acute (3) Syncope ICD Code: R55 Status: Acute Assessment and Plan 51-year-old male with history of CAD with stent x2 in , presents with chest pains and syncope Chest Pain with hx of CAD s/p Stent: possibly related to Cocaine use, UDS positive although patient denies. ACS ruled out with negative cardiac enzymes 3 , and EKG without acute ST changes. D-dimer negative, doubt PE. Continue patient's aspirin, Plavix, statin, Coreg. Give Nitro ointment q6h. IV Morphine prn pain. Consult cardiology, initially placed consult to Dr. Jarvis who placed stents 2 months ago however he has requested on-call cardiology consult. Echocardiogram unremarkable with EF 60-65%. Chest pains resolved. Cleared for d/ c by cardiology. Stop BB with cocaine use. Syncope: unclear etiology, possibly related to alcohol/cocaine use, however need to evaluate other possible etiologies. ACS ruled out as above. Monitor on telemetry. Carotid U/S with mild plaque of distal left common carotid, otherwise no stenosis. Orthostatics negative. Given IVF bolus. Echocardiogram unremarkable. Cleared for d/c by cardiology, to f/up as outpatient for possible event monitor. Hypokalemia: K 3.3, replaced with po KCl. DVT Prophylaxis: SCDs Written by Donna Charles, acting as scribe for Dr. Matamoros on 12/01/16 at 10:44. The documentation accurately reflects the work performed [id number] by me Dr. Matamoros on 12/01/16 at 10:44. Discharge Planning Discharge patient to home Condition on discharge: Improved Heart Healthy Diet as tolerated Ad Melody activity Rx written: refilled rx for aspirin, plavix, pravachol, discontinued Coreg Follow-up with primary care physician and cardiology Problem Qualifiers (1) Chest pain: Qualified Code: R07.9 - Chest pain, unspecified type (2) Syncope: Qualified Code: R55 - Syncope, unspecified syncope type Donna Charles PA-C Dec 01, 2016 10:45 Angela Matamoros MD Dec 01, 2016 20:40
[2016-12-01] MEDS ORDERED: ASPI1TAB91 PO (10:46)
[2016-12-01] MEDS ORDERED: PLAV75TA29 PO (10:46)
[2016-12-01] MEDS ORDERED: PRAV40TA PO (10:46)
[2016-12-01 12:30] VITALS: BP 115/66; PULSE 71; RESP 22; TEMP 98.3; O2SAT 95
== END 2016-12-01 14:33 | disposition home or self-care (01) ==
LOC: NEPC 20:46 → NEDA 23:05 → NEPFCDU 11-30 02:03
PROVIDERS: ADMIT Hospitalist; ATTEND Hospitalist
DX: R07.9 Chest pain, unspecified (principal); R55 Syncope and collapse; I25.10 Atherosclerotic heart disease of native coronary artery without angina pectoris; E87.6 Hypokalemia; I51.7 Cardiomegaly; J98.11 Atelectasis; F14.90 Cocaine use, unspecified, uncomplicated; F17.210 Nicotine dependence, cigarettes, uncomplicated; Z95.5 Presence of coronary angioplasty implant and graft; Z79.899 Other long term (current) drug therapy
CPT/HCPCS: 70450; 71010; 80048; 80053; 80307; 80320; 81001; 82550; 82552; 83690; 83735; 83880; 84443; 84484; 85025; 85379; 85610; 85730; 93005; 93306; 93880; 99285; G0378; J2270; J7030; J7040; 80329; G0480

== ENCOUNTER 2016-12-13 13:05 | Inpatient (IN) | payer SELFPAY ==
[~2016-12-13] VITALS: Ht 177.8 cm; Wt 103.3 kg
[~2016-12-13 13:05] MED LIST changes: +ASPI1TAB91 PO; -Aspirin Chew PO; -CARV6.25 PO
[2016-12-13 13:07] VITALS: BP 168/105; PULSE 78; RESP 20; TEMP 97.9; O2SAT 96
[2016-12-13 14:08] LABS: AUTOMATED NEUTROPHIL # 3.7 TH/MM3 (1.8-7.7); BASOPHIL # 0.1 TH/MM3 (0-0.2); BASOPHIL % 1.3 % (0.0-2.0); EOSINOPHIL # 0.1 TH/MM3 (0-0.4); EOSINOPHIL % 1.1 % (0.0-4.0); HEMATOCRIT 45.5 % (39.0-51.0); HEMO FLAGS DIFF FINAL; LYMPH % 39.6 % (9.0-44.0); LYMPHOCYTE # 2.8 TH/MM3 (1.0-4.8); MEAN CELL VOLUME 89.9 FL (80.0-100.0); MEAN CORPUSCULAR HEMOGLOBIN 30.3 PG (27.0-34.0); MEAN CORPUSCULAR HGB CONC 33.7 % (32.0-36.0); PLATELET COUNT 164 TH/MM3 (150-450); RED BLOOD COUNT 5.06 MIL/MM3 (4.50-5.90); RED CELL DISTRIBUTION WIDTH 13.9 % (11.6-17.2); WHITE BLOOD COUNT 7.2 TH/MM3 (4.0-11.0)
[2016-12-13 14:16] LABS: AMPHETAMINE, URINE NEG (NEG); BARBITURATES, URINE NEG (NEG); COCAINE, URINE POS (NEG)
[2016-12-13 14:18] LABS: BLOOD, URINE NEG (NEG); COMMENT (UR) CULT NOT INDICATED; CULTURE IF INDICATED CULT NOT INDICATED; GLUCOSE,URINE NEG (NEG); KETONE, URINE NEG (NEG); MUCUS URINE FEW /lpf (OCC); NITRITE,URINE NEG (NEG); PH, URINE 6.5 (5.0-8.5); SQUAMOUS EPITHELIAL CELL URINE <1 /hpf (0-5); URINE COLOR YELLOW (YELLW/STRAW)
[2016-12-13 14:20] LABS: INTERNATIONAL NORMALIZED RATIO 0.9 RATIO; PROTHROMBIN TIME - PATIENT 10.3 SEC (9.8-11.6)
[2016-12-13 14:28] LABS: ANION GAP 9 MEQ/L (5-15)
[2016-12-13 14:30] LABS: ALKALINE PHOSPHATASE 99 U/L (45-117); ALT (GPT) 34 U/L (12-78); AST (GOT) 22 U/L (15-37); BICARBONATE 26.3 MEQ/L (21.0-32.0); BLOOD UREA NITROGEN 15 MG/DL (7-18); CHLORIDE 108 MEQ/L (98-107); GLOMERULAR FILTRATION RATE 67 ML/MIN (>89); SODIUM (NA) 143 MEQ/L (136-145); TOTAL BILIRUBIN ADULT 0.3 MG/DL (0.2-1.0)
[2016-12-13 15:07] VITALS: BP 159/93; PULSE 77; RESP 16; O2SAT 95
--- NOTE | 2016-12-13 16:21 | PD ---
HPI Chief Complaint: Psychiatric Symptoms Time Seen by Provider: 16:16 Travel History International Travel<30 days: No Contact w/Intl Traveler<30days: No Traveled to known affect area: No History of Present Illness HPI 51-year-old male that presents to the ED for evaluation of suicidal ideation. Patient states that he's been feeling depressed and has a consolidation. Patient is a chronic history of cocaine abuse and has been here twice for MRI as well as syncope secondary to cocaine abuse. Per patient he continues using cocaine. He denies any chest pain or any symptoms to me. He states that he is mainly here for the depression and suicidal ideation. Per patient he turgor to estimate but they wouldn't see him because of his medical conditions of the brought him here. He is not Menezes act. He came here voluntarily. He states that his symptoms are severe. Per patient he does not actually have a plan but he does feel suicidal. He does have a history of depression in the past. Allergy to penicillin. Nothing makes them better or worse. Denies any Iv drug abuse. PFSH Past Medical History Hx Anticoagulant Therapy: Yes (PLAVIX) Autoimmune Disease: No Heart Rhythm Problems: No Cancer: No Cardiac Catheterization: Yes Cardiovascular Problems: Yes High Cholesterol: Yes Congestive Heart Failure: No Coronary Artery Disease: Yes Diabetes: No Endocrine: No Genitourinary: No Immune Disorder: No Musculoskeletal: No Neurologic: No Psychiatric: No Reproductive: No Respiratory: No Past Surgical History Cardiac Surgery: Yes (STENT PLACED) Coronary Artery Bypass Graft: No Social History Alcohol Use: Yes (occasionally) Tobacco Use: Yes (half a pack a day) Substance Use: No Allergies-Medications (Allergen,Severity, Reaction): Coded Allergies: Penicillin (Verified Allergy, Intermediate, rash, 12/13/16) Reported Meds & Prescriptions Reported Meds & Active Scripts Active Aspirin Adult Low Strength (Aspirin) 81 Mg Tabdr 81 Mg PO DAILY Pravachol (Pravastatin) 40 Mg Tab 40 Mg PO HS 30 Days Plavix (Clopidogrel Bisulfate) 75 Mg Tab 75 Mg PO DAILY 30 Days Review of Systems General / Constitutional: No: Fever, Chills, Weight Gain, Weight Loss, Other Eyes: No: Diploplia, Blurred Vision, Photophobia, Drainage, Redness, Foreign Body Sensation, Pain, Tearing, Blind Spots, Visual changes, Blindness, Other HENT: No: Headaches, Vertigo, Lightheadedness, Sore Throat, Rhinitis, Rhinorrhea, Congestion, Nosebleed, Neck Stiffness, Neck Pain, Masses, Gingival Bleeding, Dental Difficulties, Ear Discharge, Earache, Other Cardiovascular: No: Chest Pain or Discomfort, Palpitations, Irregular Rhythm, Tachycardia, Diaphoresis, Syncope, Dyspnea on exertion, Varicosities, Edema, Cyanosis, Varicosities, Phlebitis, Claudication, Other Respiratory: No: Cough, Shortness of Breath, Wheezing, Sneezing, Orthopnea, Hemoptysis, Stridor, Night Sweats, Pleuritic Pain, Other Gastrointestinal: No: Nausea, Vomiting, Diarrhea, Abdominal Pain, Hematemesis, Hematochezia, Constipation, Changes in Bowel Habits, Indigestion, Dysphagia, Loss of Appetite, Other Genitourinary: No: Urgency, Frequency, Dysuria, Nocturia, Hematuria, Decreased Urinary Output, Oliguria, Hesitancy, Dribbling, Incontinence, Pelvic Pain, Flank Pain, Dyspareunia, Discharge, Dysmenorrhea, Menorrhagia, Metorrhagia, Vaginal Bleeding, Other Musculoskeletal: No: Myalgias, Arthralgias, Limited ROM, Weakness, Cramping, Edema, Pain, Atrophy, Other Skin: No Rash, No Itching, No Dryness, No Lumps, No Hives, No Change in Pigmentation, No Change in nails, No Alopecia, No Lesions, No Breast Lumps, No Breast Tenderness, No Breast Swelling, No Other Neurologic: No: Weakness, Dizziness, Syncope, Focal Abnormalities, Coordination Problem, Tremor, Ataxia, Headache, Change in Mentation, Slurred Speech, Paresthesia, Incontinence, Seizures, Sensory Disturbance, Other Psychiatric: Positive: Depression, Suicidal Ideations, No: Anxiety, Disorder of Thought, Mood Disorder, Substance Abuse, Homicidal Ideation, Other Endocrine: No: Heat Intolerance, Cold Intolerance, Polyuria, Polydipsia, Other Hematologic/Lymphatic: No: Easy Bruising, Lymph Node Enlargement, Other Physical Exam Narrative GENERAL: SKIN: Warm and dry. HEAD: Atraumatic. Normocephalic. EYES: Pupils equal and round. No scleral icterus. No injection or drainage. ENT: No nasal bleeding or discharge. Mucous membranes pink and moist. Tongue is midline, no uvula deviation. NECK: Trachea midline. No JVD. CARDIOVASCULAR: Regular rate and rhythm. RESPIRATORY: No accessory muscle use. Clear to auscultation. Breath sounds equal bilaterally. GASTROINTESTINAL: Abdomen soft, non-tender, nondistended. Hepatic and splenic margins not palpable. MUSCULOSKELETAL: Extremities without clubbing, cyanosis, or edema. No obvious deformities. Full range of motion of the upper and lower extremities bilaterally. 2+ pulses bilaterally. NEUROLOGICAL: Awake and alert. No obvious cranial nerve deficits. Motor grossly within normal limits. Five out of 5 muscle strength in the arms and legs. Normal speech. PSYCHIATRIC: depressed mood and affect; insight and judgment normal. Data Data Last Documented VS Vital Signs Date Time Temp Pulse Resp B/P Pulse Ox O2 Delivery O2 Flow Rate FiO2 12/13/16 15:07 77 16 159/93 95 Room Air 12/13/16 13:07 97.9 Orders Complete Blood Count With Diff (12/13/16 13:38) Comprehensive Metabolic Panel (12/13/16 13:38) Psych Screen (12/13/16 13:38) Prothrombin Time / Inr (Pt) (12/13/16 13:38) Drug Screen, Random Urine (12/13/16 13:56) Urinalysis - C+S If Indicated (12/13/16 13:56) Act Partial Throm Time (Ptt) (12/13/16 13:56) Diet Regular Basic (12/13/16 Dinner) Labs Laboratory Tests Test 12/13/16 12/13/16 13:45 13:52 Urine Color YELLOW Urine Turbidity HAZY Urine pH 6.5 Urine Specific [place] 1.023 Urine Protein TRACE mg/dL Urine Glucose (UA) NEG mg/dL Urine Ketones NEG mg/dL Urine Occult Blood NEG Urine Nitrite NEG Urine Bilirubin NEG Urine Urobilinogen LESS THAN 2.0 MG/DL Urine Leukocyte Esterase TRACE Urine RBC LESS THAN 1 /hpf Urine WBC 1 /hpf Urine Squamous Epithelial <1 /hpf Cells Urine Mucus FEW /lpf Microscopic Urinalysis Comment CULT NOT INDICATED Urine Opiates Screen NEG Urine Barbiturates Screen NEG Urine Amphetamines Screen NEG Urine Benzodiazepines Screen NEG Urine Cocaine Screen POS Urine Cannabinoids Screen NEG White Blood Count 7.2 TH/MM3 Red Blood Count 5.06 MIL/MM3 Hemoglobin 15.3 GM/DL Hematocrit 45.5 % Mean Corpuscular Volume 89.9 FL Mean Corpuscular Hemoglobin 30.3 PG Mean Corpuscular Hemoglobin 33.7 % Concent Red Cell Distribution Width 13.9 % Platelet Count 164 TH/MM3 Mean Platelet Volume 10.5 FL Neutrophils (%) (Auto) 52.0 % Lymphocytes (%) (Auto) 39.6 % Monocytes (%) (Auto) 6.0 % Eosinophils (%) (Auto) 1.1 % Basophils (%) (Auto) 1.3 % Neutrophils # (Auto) 3.7 TH/MM3 Lymphocytes # (Auto) 2.8 TH/MM3 Monocytes # (Auto) 0.4 TH/MM3 Eosinophils # (Auto) 0.1 TH/MM3 Basophils # (Auto) 0.1 TH/MM3 CBC Comment DIFF FINAL Differential Comment Prothrombin Time 10.3 SEC Prothromb Time International 0.9 RATIO Ratio Sodium Level 143 MEQ/L Potassium Level 4.0 MEQ/L Chloride Level 108 MEQ/L Carbon Dioxide Level 26.3 MEQ/L Anion Gap 9 MEQ/L Blood Urea Nitrogen 15 MG/DL Creatinine 1.37 MG/DL Estimat Glomerular Filtration 67 ML/MIN Rate Random Glucose 91 MG/DL Calcium Level 9.0 MG/DL Total Bilirubin 0.3 MG/DL Aspartate Amino Transf 22 U/L (AST/SGOT) Alanine Aminotransferase 34 U/L (ALT/SGPT) Alkaline Phosphatase 99 U/L Total Protein 8.5 GM/DL Albumin 3.6 GM/DL MDM Medical Decision Making Medical Screen Exam Complete: Yes Emergency Medical Condition: Yes Medical Record Reviewed: Yes Interpretation(s) CBC & BMP Diagram 12/13/16 13:52 coags within normal limits. Tox screen positive for cocaine. LFTs within normal limits Differential Diagnosis Depression versus suicidal ideation versus anxiety versus adjustment disorder versus mood disorder versus bipolar disorder versus schizophrenia versus paranoid disorder versus psychosis versus substance abuse versus alcohol abuse versus alcohol induced psychosis versus homicidality addition versus cutting versus personality disorder Narrative Course 51-year-old male that presents to the ED for evaluation of psychiatric illness. Patient was properly examined and was found to have signs and symptoms consistent psychiatric illness. No sign of acute medical distress. Labs were drawn. Patient was medically cleared. Okay to be seen by psych. Mental health screening was discussed with the patient. Diagnosis Primary Impression: Depression Qualified Code: F32.1 - Moderate single current episode of major depressive disorder Additional Impression: Suicidal ideations Cong Nicholas Dec 13, 2016 16:21
[2016-12-13 22:18] VITALS: BP 148/89; PULSE 77; RESP 18; O2SAT 98
[2016-12-14 02:13] VITALS: BP 115/64; PULSE 59; RESP 18; O2SAT 98
[2016-12-14 06:18] VITALS: BP 111/59; PULSE 65; RESP 18; O2SAT 98
[2016-12-14 06:51] LABS: APTT (PATIENT) 29.5 SEC (24.3-30.1)
[2016-12-14] MEDS ORDERED: ACETAMINOPHEN 325 MG TAB PO PRN (10:15)
[2016-12-14] MEDS ORDERED: MAGNESIUM HYDROXIDE SUSP 30 ML CUP PO PRN (10:15)
[2016-12-14] MEDS ORDERED: ALUMINUM/MAGNESIUM/SIMETH 30 ML CUP PO PRN (10:15)
[2016-12-14] MEDS ORDERED: LORazepam 1 MG TAB PO PRN (10:15)
[2016-12-14] MEDS ORDERED: LORazepam 0.5 MG TAB PO PRN (10:15)
[2016-12-14] MEDS ORDERED: LORazepam 2 MG/ML VIAL IM PRN ×2 (10:15)
[2016-12-14 11:39] VITALS: BP 146/95; PULSE 67; RESP 18; O2SAT 97
[2016-12-14 11:49] VITALS: BP 146/95; PULSE 67; RESP 18; O2SAT 97
[2016-12-14 13:19] VITALS: BP 152/101; PULSE 128; RESP 20; TEMP 98; O2SAT 98
[2016-12-14 20:53] VITALS: BP 142/87; PULSE 73; RESP 18; TEMP 96.6; O2SAT 95
[2016-12-15 05:13] VITALS: BP 118/54; PULSE 69; RESP 18; TEMP 96.7; O2SAT 97
[2016-12-15 08:19] LABS: ANION GAP 7 MEQ/L (5-15); BICARBONATE 26.9 MEQ/L (21.0-32.0); BLOOD UREA NITROGEN 15 MG/DL (7-18); CHLORIDE 107 MEQ/L (98-107); GLOMERULAR FILTRATION RATE 67 ML/MIN (>89); POTASSIUM 3.6 MEQ/L (3.5-5.1); SODIUM (NA) 141 MEQ/L (136-145)
[2016-12-15 08:21] LABS: LDL CHOLESTEROL 156 MG/DL (0-99)
[2016-12-15] MEDS: NICOTINE 21 MG/24 HR PATCH T-DERMAL SCH (09:00)
[2016-12-15 09:34] LABS: HEMOGLOBIN A1a 0.8 %; HEMOGLOBIN A1b 1.8 %; HEMOGLOBIN Ao 85.8 %; HEMOGLOBIN LA1C 1.9 %; HEMOGLOBIN P3 3.6 %
[2016-12-15] MEDS ORDERED: ACETAMINOPHEN 325 MG TAB PO PRN (13:30)
[2016-12-15] MEDS ORDERED: diphenhydrAMINE HCL 50 MG CAP PO PRN (13:30)
[2016-12-15] MEDS ORDERED: MAGNESIUM HYDROXIDE SUSP 30 ML CUP PO PRN (13:30)
[2016-12-15] MEDS ORDERED: ALUMINUM/MAGNESIUM/SIMETH 30 ML CUP PO PRN (13:30)
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
[2016-12-15] MEDS: ARIPiprazole 10 MG TAB PO SCH (15:32)
[2016-12-15 18:39] VITALS: BP 114/73; PULSE 77; RESP 18; TEMP 98.4; O2SAT 100
[2016-12-15] MEDS: REMOVE OLD NICODERM (NICOTINE) PATCH TD SCH (20:59)
[2016-12-15] MEDS: PRAVASTATIN SOD 40 MG TAB PO SCH (21:00)
[2016-12-15] MEDS: MIRTAZAPINE 15 MG TAB PO SCH (21:00)
[2016-12-16 06:19] VITALS: BP 156/98; PULSE 73; RESP 18; TEMP 97.9
[2016-12-16] MEDS: ASPIRIN EC 81 MG TABEC PO SCH (08:20)
[2016-12-16] MEDS: ARIPiprazole 10 MG TAB PO SCH (08:20)
[2016-12-16] MEDS: CLOPIDOGREL 75 MG TAB PO SCH (08:21)
[2016-12-16] MEDS: NICOTINE 21 MG/24 HR PATCH T-DERMAL SCH (09:00)
[2016-12-16] MEDS ORDERED: NICOTINE 21 MG/24 HR PATCH T-DERMAL SCH (09:00)
--- NOTE | 2016-12-16 14:13 | HHI.PYPN ---
Subjective Remarks Patient seen on unit with nurse Nita and medical student Tabitha, patient calm today is happy that his cell phone was found and returned, said he slept well last night. He is vague about continued suicidality. Patient compliant medications The anger and vigilance have softened. For now continue treatment no change Review of Systems Except as stated in HPI: all other systems reviewed are Neg Objective Alert: Yes [place]: Person, Place, Date Mood: Calm, Depressed Affect: Restricted Memory Intact: Comment Hallucinations: Other (deny) Delusions: No Delusion Type: Other (denies) Suicidal: Ideation (vague but deny) Homicidal: Ideation (denies) Insight/Judgement Poor Vitals/IOs Vital Signs Date Time Temp Pulse Resp B/P Pulse Ox O2 Delivery O2 Flow Rate FiO2 12/16/16 06:19 97.9 73 18 156/98 12/15/16 18:39 100 12/14/16 11:49 Room Air Intake and Output 12/15/16 12/15/16 12/16/16 08:00 16:00 00:00 Intake Total 240 ml Balance 240 ml Assessment & Plan Problem List: (1) Recurrent major depression-severe ICD Code: F33.2 (2) Cocaine abuse ICD Code: F14.10 Assessment & Plan Estimated LOS: days patient's depression persist though the anger paranoia softened. His vague about suicidality. Compliant medications. For now continue treatment Justification for Cont. Inpt. At this time patient was serially decompensate if placed in a lower level of care Discharge Planning To be determined Request HC Surrog/Guard Advoc?: No Problem Qualifiers (1) Recurrent major depression-severe: Qualified Code: F33.2 - Severe episode of recurrent major depressive disorder, without psychotic features Dante Martinez MD Dec 16, 2016 14:13
--- NOTE | 2016-12-16 16:53 | PD.CONS ---
HPI Service [facility] Consult Requested By psychiatric services Reason for Consult Medical management Primary Care Physician No Primary Care Physician Diagnoses: History of Present Illness This is a 51-year-old male patient with past medical history which includes CAD status post cardiac stent 2. Patient is currently inpatient psychiatric center we have been consulted for assistance with medical management. Patient reports he is feeling well and in his normal state of health although he did run out of his medications approximately a month ago she has not been taking his pravastatin for the past month. Patient denies shortness of breath chest pain nausea vomiting diarrhea constipation fevers or chills. Patient does report prior to hospitalization he was using cocaine to medicate his depression. Review of Systems Except as stated in HPI: all other systems reviewed are Neg Past Family Social History Allergies: Coded Allergies: Penicillin (Verified Allergy, Intermediate, rash, 12/13/16) Past Medical History CAD status post cardiac stent 2. Past Surgical History Cardiac catheterization, left knee surgery Reported Medications Aspirin Adult Low Strength (Aspirin) 81 Mg Tabdr 81 Mg PO DAILY Pravachol (Pravastatin) 40 Mg Tab 40 Mg PO HS 30 Days Plavix (Clopidogrel Bisulfate) 75 Mg Tab 75 Mg PO DAILY 30 Days Active Ordered Medications Current Medications Medications (Trade) Dose Ordered Sig/Willie Route Start Time Stop Time Status Last Admin (Ativan) 1 mg Q6H PRN PO 12/14/16 10:15 (Ativan Inj) 1 mg Q6H PRN IM 12/14/16 10:15 (Tylenol) 650 mg Q4H PRN PO 12/14/16 10:15 (Milk Of Magnesia Liq) 30 ml DAILY PRN PO 12/14/16 10:15 (Mag-Al Plus Susp Liq) 30 ml Q6H PRN PO 12/14/16 10:15 (Habitrol 21 Mg Patch.24 Hr) 1 patch DAILY T-DERMAL 12/15/16 09:00 Miscellaneous Information 1 HS TD 12/15/16 21:00 (Benadryl) 50 mg HS PRN PO 12/15/16 13:30 (Ecotrin Ec) 81 mg DAILY PO 12/16/16 09:00 12/16/16 08:20 (Plavix) 75 mg DAILY PO 12/16/16 09:00 12/16/16 08:21 (Pravachol) 40 mg HS PO 12/15/16 21:00 12/15/16 21:00 (Remeron) 15 mg HS PO 12/15/16 21:00 12/15/16 21:00 (Abilify) 10 mg DAILY PO 12/15/16 13:45 12/16/16 08:20 Family History Mother with diabetes mellitus and cardiac disease started in her late 40s Father with liver disease 2 sisters positive for diabetes mellitus Social History Patient reports he quit smoking cigarettes one month ago Occasional EtOH use Does admit to using cocaine to manage his depression Physical Exam Vital Signs Vital Signs Date Time Temp Pulse Resp B/P Pulse Ox O2 Delivery O2 Flow Rate FiO2 12/16/16 06:19 97.9 73 18 156/98 12/15/16 18:39 98.4 77 18 114/73 100 Physical Exam GENERAL: This is a well-nourished, well-developed patient, in no apparent distress. SKIN: No rashes, ecchymoses or lesions. Cool and dry. HEAD: Atraumatic. Normocephalic. No temporal or scalp tenderness. EYES: Extraocular motions intact. No scleral icterus. No injection or drainage. CARDIOVASCULAR: Regular rate and rhythm without murmurs, gallops, or rubs. RESPIRATORY: Clear to auscultation. Breath sounds equal bilaterally. No wheezes , rales, or rhonchi. GASTROINTESTINAL: Abdomen soft, non-tender, nondistended. No guarding. MUSCULOSKELETAL: Extremities without clubbing, cyanosis, or edema. No joint tenderness, effusion, or edema noted. No calf tenderness. Negative Homans sign bilaterally. NEUROLOGICAL: Awake and alert. No focal deficits. Motor and sensory grossly within normal limits. Five out of 5 muscle strength in all muscle groups. Normal speech. Assessment and Plan Assessment and Plan This is a 51-year-old male patient with past medical history which includes CAD status post cardiac stent 2. Patient is currently inpatient psychiatric center we have been consulted for assistance with medical management. Patient reports he is feeling well and his normal state of health although he did run out of his medications approximately a month ago she has not been taking his pravastatin for the past month. Patient denies shortness of breath chest pain nausea vomiting diarrhea constipation fevers or chills. Patient does report prior to hospitalization he was using cocaine to medicate his depression. CAD status post cardiac stent 2 Continue aspirin Continue Lasix Continue pravastatin Hyperlipidemia Restart pravastatin patient has not been taking medication for approximately one month LDL 156 educated on healthy diet and exercise Recommend patient follow-up outpatient approximately one month for monitoring Polysubstance abuse patient counseled encouraged to abstain Patient does not have PCP or insurance consult case management for possible Blue card and set up with outpatient clinic DVT prophylaxis patient is ambulatory Discussed plan of care with patient and nursing Patient medically stable at this point will sign off if patient's condition changes or further assistance is needed please reconsult Recommend patient continue aspirin, Plavix, pravastatin also recommend patient follow-up with outpatient PCP. Written by Martha Hill, acting as scribe for Dr. Anna on 12/16/16 at 16:53. Attending Statement The documentation accurately reflects the work performed [id number] by me on 12/16/16 at 16:53. Martha Hill Dec 16, 2016 16:53 Yamil Navarro MD Dec 23, 2016 22:14
[2016-12-16] MEDS ORDERED: PRAV40TA PO (16:57)
[2016-12-16] MEDS ORDERED: ASPI81TA11 PO (16:57)
[2016-12-16] MEDS ORDERED: PLAV75TA29 PO (16:57)
[2016-12-16] MEDS ORDERED: FLUMAZENIL 0.5 MG/5 ML VIAL IV PUSH PRN (17:00)
[2016-12-16] MEDS ORDERED: SODIUM CHLORIDE 0.9% FLUSH 5 ML FLUSH IV FLUSH PRN (17:00)
[2016-12-16] MEDS ORDERED: LORazepam 2 MG/ML VIAL IV PUSH PRN ×4 (17:00)
[2016-12-16] MEDS ORDERED: LORazepam 1 MG TAB PO PRN (17:00)
[2016-12-16] MEDS ORDERED: LORazepam 2 MG TAB PO PRN (17:00)
[2016-12-16 18:13] VITALS: BP 153/93; PULSE 70; RESP 17; TEMP 98.3; O2SAT 98
[2016-12-16] MEDS: REMOVE OLD NICODERM (NICOTINE) PATCH TD SCH (21:00)
[2016-12-16] MEDS: SODIUM CHLORIDE 0.9% FLUSH 5 ML FLUSH IV FLUSH SCH (21:00)
[2016-12-16] MEDS: PRAVASTATIN SOD 40 MG TAB PO SCH (21:13)
[2016-12-16] MEDS: MIRTAZAPINE 15 MG TAB PO SCH (21:13)
[2016-12-17 05:37] VITALS: BP 134/70; PULSE 23; RESP 18; TEMP 98.3; O2SAT 98
[2016-12-17] MEDS: FOLIC ACID 1 MG TAB PO SCH (08:53)
[2016-12-17] MEDS: CLOPIDOGREL 75 MG TAB PO SCH (08:53)
[2016-12-17] MEDS: THIAMINE HCL 100 MG TAB PO SCH (08:54)
[2016-12-17] MEDS: ASPIRIN EC 81 MG TABEC PO SCH (08:54)
[2016-12-17] MEDS: ARIPiprazole 10 MG TAB PO SCH (08:54)
[2016-12-17] MEDS: NICOTINE 21 MG/24 HR PATCH T-DERMAL SCH (09:00)
[2016-12-17] MEDS: SODIUM CHLORIDE 0.9% FLUSH 5 ML FLUSH IV FLUSH SCH ×2 (09:00→21:00)
--- NOTE | 2016-12-17 13:00 | HHI.PYPN ---
Subjective Remarks Patient was seen and case discussed with nursing. Patient is alert and oriented 4, no tremors, no auditory visual hallucinations. Patient is social and going to groups. Describes his mood today is "less depressed." Sleeping well. Mood as 6 out of 10. Denies suicidal ideations thought content or plan. Describes a lifetime of depressed mood and we discussed dysthymia. Denies anger or irritability. Behaving well on the unit Objective Alert: Yes [place]: Person, Place, Date Mood: Calm, Depressed Affect: Restricted Memory Intact: Comment Hallucinations: Other (deny) Delusions: No Delusion Type: Other (denies) Suicidal: Ideation (vague but deny) Homicidal: Ideation (denies) Insight/Judgement Poor Vitals/IOs Vital Signs Date Time Temp Pulse Resp B/P Pulse Ox O2 Delivery O2 Flow Rate FiO2 12/17/16 05:37 98.3 23 18 134/70 98 12/14/16 11:49 Room Air Assessment & Plan Problem List: (1) Recurrent major depression-severe ICD Code: F33.2 (2) Cocaine abuse ICD Code: F14.10 Assessment & Plan Continue current treatment plan Justification for Cont. Inpt. Patient will decompensate in a less restrictive setting Request HC Surrog/Guard Advoc?: No Problem Qualifiers (1) Recurrent major depression-severe: Qualified Code: F33.2 - Severe episode of recurrent major depressive disorder, without psychotic features Michael Paul DO Dec 17, 2016 13:00
[2016-12-17 19:44] VITALS: BP 146/93; PULSE 86; RESP 18; TEMP 97.9; O2SAT 99
[2016-12-17] MEDS: PRAVASTATIN SOD 40 MG TAB PO SCH (20:22)
[2016-12-17] MEDS: MIRTAZAPINE 15 MG TAB PO SCH (20:22)
[2016-12-17] MEDS: REMOVE OLD NICODERM (NICOTINE) PATCH TD SCH (21:00)
[2016-12-18 05:27] VITALS: BP 126/82; PULSE 74; RESP 18; TEMP 98; O2SAT 96
[2016-12-18] MEDS: NICOTINE 21 MG/24 HR PATCH T-DERMAL SCH (09:00)
[2016-12-18] MEDS: SODIUM CHLORIDE 0.9% FLUSH 5 ML FLUSH IV FLUSH SCH ×2 (09:00→21:00)
[2016-12-18] MEDS: THIAMINE HCL 100 MG TAB PO SCH (09:07)
[2016-12-18] MEDS: CLOPIDOGREL 75 MG TAB PO SCH (09:07)
[2016-12-18] MEDS: FOLIC ACID 1 MG TAB PO SCH (09:07)
[2016-12-18] MEDS: ARIPiprazole 10 MG TAB PO SCH (09:07)
[2016-12-18] MEDS: ASPIRIN EC 81 MG TABEC PO SCH (09:07)
--- NOTE | 2016-12-18 14:07 | HHI.PYPN ---
Subjective Remarks Patient was seen and case discussed with nursing. Patient describes his mood is "tired." Interviewed in bed and says he sleeping well at night. He remains pleasant and cooperative with exam. Notices an improvement in mood. He says in his private time he is not thinking about suicide. He is thinking about how his life choices and events led him to this point. Behaving well on the unit. Compliant with medications Objective Alert: Yes [place]: Person, Place, Date Mood: Calm, Depressed Affect: Restricted Memory Intact: Comment Hallucinations: Other (deny) Delusions: No Delusion Type: Other (denies) Suicidal: Ideation (vague but deny) Homicidal: Ideation (denies) Insight/Judgement Fair Vitals/IOs Vital Signs Date Time Temp Pulse Resp B/P Pulse Ox O2 Delivery O2 Flow Rate FiO2 12/18/16 05:27 98.0 74 18 126/82 96 12/14/16 11:49 Room Air Assessment & Plan Problem List: (1) Recurrent major depression-severe ICD Code: F33.2 (2) Cocaine abuse ICD Code: F14.10 Assessment & Plan Continue current treatment plan Justification for Cont. Inpt. Patient will decompensate in a less restrictive setting Request HC Surrog/Guard Advoc?: No Problem Qualifiers (1) Recurrent major depression-severe: Qualified Code: F33.2 - Severe episode of recurrent major depressive disorder, without psychotic features Michael Paul DO Dec 18, 2016 14:07
[2016-12-18 19:59] VITALS: BP 138/84; PULSE 86; RESP 18; TEMP 97.8; O2SAT 97
[2016-12-18] MEDS: REMOVE OLD NICODERM (NICOTINE) PATCH TD SCH (21:00)
[2016-12-18] MEDS: PRAVASTATIN SOD 40 MG TAB PO SCH (21:14)
[2016-12-18] MEDS: MIRTAZAPINE 15 MG TAB PO SCH (21:14)
[2016-12-19 05:51] VITALS: BP 128/63; PULSE 76; RESP 18; TEMP 96.7; O2SAT 98
[2016-12-19] MEDS: CLOPIDOGREL 75 MG TAB PO SCH (08:38)
[2016-12-19] MEDS: ARIPiprazole 10 MG TAB PO SCH (08:38)
[2016-12-19] MEDS: FOLIC ACID 1 MG TAB PO SCH (08:39)
[2016-12-19] MEDS: ASPIRIN EC 81 MG TABEC PO SCH (08:39)
[2016-12-19] MEDS: NICOTINE 21 MG/24 HR PATCH T-DERMAL SCH (08:40)
[2016-12-19] MEDS: SODIUM CHLORIDE 0.9% FLUSH 5 ML FLUSH IV FLUSH SCH ×2 (08:54→21:00)
[2016-12-19] MEDS: THIAMINE HCL 100 MG TAB PO SCH (08:55)
--- NOTE | 2016-12-19 14:19 | HHI.PYPN ---
Subjective Remarks Patient was seen and case discussed with nursing. Patient is pleasant and cooperative with exam. His mood is improving and he denies suicidal ideations intent or plan. Describes his mood today is a 4 out of 10. 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 Seen interacting with others. Objective Alert: Yes [place]: Person, Place, Date Mood: Calm, Depressed Affect: Restricted Memory Intact: Comment Hallucinations: Other (deny) Delusions: No Delusion Type: Other (denies) Suicidal: Ideation (vague but deny) Homicidal: Ideation (denies) Insight/Judgement Improving Vitals/IOs Vital Signs Date Time Temp Pulse Resp B/P Pulse Ox O2 Delivery O2 Flow Rate FiO2 12/19/16 05:51 96.7 76 18 128/63 98 Assessment & Plan Problem List: (1) Recurrent major depression-severe ICD Code: F33.2 (2) Cocaine abuse ICD Code: F14.10 Assessment & Plan Patient signed right of release which well be addressed by treating psychiatrist tomorrow Justification for Cont. Inpt. Patient will decompensate in a less restrictive setting Request HC Surrog/Guard Advoc?: No Problem Qualifiers (1) Recurrent major depression-severe: Qualified Code: F33.2 - Severe episode of recurrent major depressive disorder, without psychotic features Michael Paul DO Dec 19, 2016 14:19
[2016-12-19 18:40] VITALS: BP 143/79; PULSE 74; RESP 18; TEMP 97.7; O2SAT 98
[2016-12-19] MEDS: REMOVE OLD NICODERM (NICOTINE) PATCH TD SCH (21:00)
[2016-12-19] MEDS: MIRTAZAPINE 15 MG TAB PO SCH (21:08)
[2016-12-19] MEDS: PRAVASTATIN SOD 40 MG TAB PO SCH (21:08)
[2016-12-20 06:37] VITALS: BP 121/79; PULSE 68; RESP 16; TEMP 98.9; O2SAT 96
[2016-12-20] MEDS: ASPIRIN EC 81 MG TABEC PO SCH (09:00)
[2016-12-20] MEDS: NICOTINE 21 MG/24 HR PATCH T-DERMAL SCH (09:00)
[2016-12-20] MEDS: SODIUM CHLORIDE 0.9% FLUSH 5 ML FLUSH IV FLUSH SCH (09:00)
[2016-12-20] MEDS: THIAMINE HCL 100 MG TAB PO SCH (09:00)
[2016-12-20] MEDS: CLOPIDOGREL 75 MG TAB PO SCH (09:00)
[2016-12-20] MEDS: ARIPiprazole 10 MG TAB PO SCH (09:00)
[2016-12-20] MEDS: FOLIC ACID 1 MG TAB PO SCH (09:00)
[2016-12-20] MEDS ORDERED: VITA100T2 PO (12:05)
[2016-12-20] MEDS ORDERED: ARIP1TAB12 PO (12:05)
[2016-12-20] MEDS ORDERED: FOLI1TAB4 PO (12:05)
[2016-12-20] MEDS ORDERED: MIRTA15 PO (12:05)
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
== END 2016-12-20 15:45 | disposition home or self-care (01) | DRG 885 ==
LOC: NEPJ 13:05 → NEDA 12-14 12:25 → H260 12-14 12:27
PROVIDERS: ADMIT Psychiatry & Neurology Psychiatry; ATTEND Psychiatry & Neurology Psychiatry
DX: F33.2 Major depressive disorder, recurrent severe without psychotic features (principal); R45.851 Suicidal ideations; F14.20 Cocaine dependence, uncomplicated; I25.10 Atherosclerotic heart disease of native coronary artery without angina pectoris; Z95.5 Presence of coronary angioplasty implant and graft; F17.210 Nicotine dependence, cigarettes, uncomplicated; E78.5 Hyperlipidemia, unspecified; Z72.811 Adult antisocial behavior
CPT/HCPCS: 80048; 80053; 80061; 80307; 81001; 83036; 85025; 85610; 85730; 99285

== ENCOUNTER 2017-05-01 23:55 | Emergency (ER) | payer OTHER ==
[~2017-05-01] VITALS: Ht 172.7 cm; Wt 95.0 kg
[~2017-05-01 23:55] MED LIST changes: +ARIP1TAB12 PO; -ASPI1TAB91 PO; +ASPI81TA11 PO; +FOLI1TAB4 PO; +MIRTA15 PO; +VITA100T2 PO
[2017-05-02 00:06] VITALS: BP 156/82; PULSE 91; RESP 18; TEMP 98.7; O2SAT 98
[2017-05-02] MEDS ORDERED: SODIUM CHLOR 0.9% 1000 ML INJ 1,000 ML IV ONE (00:45)
[2017-05-02 01:00] LABS: AUTOMATED NEUTROPHIL # 7.1 TH/MM3 (1.8-7.7); BASOPHIL % 0.5 % (0.0-2.0); EOSINOPHIL % 0.2 % (0.0-4.0); HEMATOCRIT 41.9 % (39.0-51.0); HEMO FLAGS DIFF FINAL; LYMPH % 19.2 % (9.0-44.0); LYMPHOCYTE # 1.9 TH/MM3 (1.0-4.8); MEAN CELL VOLUME 88.9 FL (80.0-100.0); MEAN CORPUSCULAR HEMOGLOBIN 30.5 PG (27.0-34.0); MEAN CORPUSCULAR HGB CONC 34.3 % (32.0-36.0); MONO % 6.3 % (0.0-8.0); NEUT % 73.8 % (16.0-70.0); PLATELET COUNT 154 TH/MM3 (150-450); RED BLOOD COUNT 4.71 MIL/MM3 (4.50-5.90); WHITE BLOOD COUNT 9.7 TH/MM3 (4.0-11.0)
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
[2017-05-02 01:02] VITALS: O2SAT 98
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
[2017-05-02 01:11] LABS: APTT (PATIENT) 28.9 SEC (24.3-30.1); PROTHROMBIN TIME - PATIENT 10.9 SEC (9.8-11.6)
[2017-05-02 01:20] LABS: ALKALINE PHOSPHATASE 78 U/L (45-117); TOTAL BILIRUBIN ADULT 0.8 MG/DL (0.2-1.0)
[2017-05-02 01:35] LABS: ALT (GPT) 33 U/L (12-78); ANION GAP 8 MEQ/L (5-15); AST (GOT) 29 U/L (15-37); BICARBONATE 26.9 MEQ/L (21.0-32.0); BLOOD UREA NITROGEN 18 MG/DL (7-18); CHLORIDE 113 MEQ/L (98-107); GLOMERULAR FILTRATION RATE 77 ML/MIN (>89); SODIUM (NA) 148 MEQ/L (136-145)
[2017-05-02 01:37] LABS: POTASSIUM 3.4 MEQ/L (3.5-5.1)
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
[2017-05-02] MEDS ORDERED: IOHEXOL 350 MG/ML 10 ML VIAL (for RAD DIAG) IV ONE (02:17)
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
[2017-05-02] MEDS ORDERED: KETOROLAC TROMETHAMINE 30 MG/ML (IVP) VIAL IV PUSH ONE (02:45)
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
[2017-05-02 03:09] LABS: BLOOD, URINE NEG (NEG); COMMENT (UR) CULT NOT INDICATED; CULTURE IF INDICATED CULT NOT INDICATED; GLUCOSE,URINE NEG (NEG); HYALINE CAST, URINE 1 /lpf (RARE); KETONE, URINE 40 mg/dL (NEG); MUCUS URINE FEW /lpf (OCC); NITRITE,URINE NEG (NEG); SQUAMOUS EPITHELIAL CELL URINE <1 /hpf (0-5); URINE COLOR YELLOW (YELLW/STRAW)
[2017-05-02] MEDS ORDERED: CYCL5TAB PO (03:11)
[2017-05-02] MEDS ORDERED: HYDR-3533 PO (03:11)
[2017-05-02 03:12] LABS: AMPHETAMINE, URINE NEG (NEG); BARBITURATES, URINE NEG (NEG); COCAINE, URINE POS (NEG)
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
--- NOTE | 2017-05-02 13:25 | EKG ---
Date Performed: 05/02/2017 Time Performed: 00:57:56 PTAGE: 52 years EKG: Sinus rhythm LEFT ATRIAL ENLARGEMENT MODERATE T-WAVE ABNORMALITY, CONSIDER LATERAL ISCHEMIA ABNORMAL ECG Compared to prior tracing no significant change PREVIOUS TRACING : 11/30/2016 09.37 DOCTOR: Bigg Whaley Interpretating Date/Time 05/02/2017 13:22:14
== END 2017-05-02 03:35 | disposition home or self-care (01) ==
LOC: NEPE 23:55
DX: M54.9 Dorsalgia, unspecified (principal); R10.9 Unspecified abdominal pain; I25.10 Atherosclerotic heart disease of native coronary artery without angina pectoris; E78.00 Pure hypercholesterolemia, unspecified; F41.9 Anxiety disorder, unspecified; F32.9 Major depressive disorder, single episode, unspecified; V03.10XA Pedestrian on foot injured in collision with car, pick-up truck or van in traffic accident, initial encounter; Z79.02 Long term (current) use of antithrombotics/antiplatelets; Z79.899 Other long term (current) drug therapy
CPT/HCPCS: 70450; 71010; 71260; 72125; 72128; 72131; 72170; 73552; 74177; 80053; 80307; 81001; 83690; 83735; 85025; 85610; 85730; 93005; 96361; 96374; 99285; J1885; J7030; Q9967